=== PATIENT | female | born 1965 | race Caucasian/White ===

== ENCOUNTER 2019-05-23 10:32 | Emergency (ER) | payer OTHER ==
[~2019-05-23] VITALS: Ht 162.6 cm; Wt 75.7 kg
[2019-05-23 10:43] VITALS: BP 164/114; Ht 162.6 cm; Wt 75.7 kg
== END 2019-05-23 12:14 | disposition home or self-care (01) ==
LOC: ED 10:32
DX: S56.3 Injury of extensor or abductor muscles, fascia and tendons of thumb at forearm level (principal); W45.8XXA Other foreign body or object entering through skin, initial encounter; Y93.89 Activity, other specified; Y92.89 Other specified places as the place of occurrence of the external cause; Y99.8 Other external cause status